=== PATIENT | male | born 1955 | race Caucasian/White ===

== ENCOUNTER → 2018-02-21 | Outpatient (CLI) | payer OTHER ==
[~2018-02-21] VITALS: Ht 185.4 cm; Wt 115.7 kg
[~2018-02-21] MED LIST: ASPIR 8181 MG PO; CENTRUM SILVER1 EAC2 PO; HYDROCHLOROTHIA25 M1 PO; LIPITOR 20 MG T20 M1 PO; VERAPAMIL E.R240 M1 PO
--- NOTE | ~2018-02-21 | PATH ---
[facility] [place] [address] PATHOLOGY RPT PROCEDURE Name: VICKIELYN E Room #: REG NINA Shook#: [id number] Admission: 02/21/18 Date of : 59 Discharge: Report #: [id number] Path Case #: [id number] [facility] Accession Number: [id number] . 01 Material submitted: . PART A: ASCENDING COLON POLYP X 2 PART B: SIGMOID COLON POLYP . 01 Clinical history: . History of polyps . 02 Diagnosis: A. Colonic mucosa, "ascending colon polyp x2": - Fragments of tubular adenomas. - There is no evidence of high grade dysplasia or malignancy. . B. Colonic mucosa, "sigmoid colon polyp", biopsy: - Hyperplastic polyp. - There is no evidence of adenomatous change, high grade dysplasia or malignancy. . (BRITTANI:billy;02/24/2018) AGA/02/24/2018 . 02 Electronically signed: . Mariusz Johnson MD, Pathologist NPI- [id number] . 01 Gross description: . A. The specimen is received in formalin, labeled "Lyn Johnston, ascending colon polyp (x2 per requisition)" and consists of multiple fragments of soft hudson tissue measuring 0.9 x 0.6 x 0.2 cm in aggregate which are entirely submitted in A1. . B. The specimen is received in formalin, labeled "Lyn Johnston, sigmoid colon polyp" and consists of a fragment of soft hudson tissue measuring 0.3 x 0.3 x 0.1 cm which is entirely submitted in B1. (SDY; 02/21/2018) SYU/SYU . 02 Pathologist provided ICD-10: D12.2, K63.5 . 02 CPT . 352158, 746227 Specimen Comment: A courtesy copy of this report has been sent to Specimen Comment: [phone], [place] [address] PATHOLOGY RPT PROCEDURE Name: LYN JOHNSTON Room #: REG [facility]#: [id number] Admission: 02/21/18 Date of : 59 Discharge: Report #: [id number] Path Case #: [id number] Specimen Comment: Report sent to / DR SANDOVAL Performed at: 01 [facility] [place] [address] [facility] [address], [place], [place] [id number] MD Chris Arriaga MD Phone: [phone] Performed at: [address] [id number] MD Marian Gustafson MD Phone: [phone]
--- NOTE | ~2018-02-21 | P ---
[facility] [place] [address] [address] [place] [address] PROCEDURE REPORT Name: LYN JOHNSTON Room #: REG [facility]#: [id number] Admission: 02/21/18 Attend Phys: Tristin Carlson Discharge: Date of : 59 Report #: [id number] THIS REPORT FOR: //name// CC: Tristin Maria MD DATE OF SERVICE: 02/21/2018 PROCEDURE PERFORMED: Colonoscopy with biopsies. HISTORY OF PRESENT ILLNESS: The patient is a 62-year-old male with a history of colon polyps, here for routine 5-year followup, yesterday presented for colonoscopy, but the prep was poor; therefore, he reprepped for today. No family history of colon cancer. He denies any symptoms. DESCRIPTION OF PROCEDURE: The risks and benefits of the procedure were explained to the patient, those risks including but not limited to bleeding, perforation, the risk of sedation. He understood these risks and gave informed consent. Sedation was given using propofol per Anesthesia. Next, a digital rectal exam was initially performed, which was normal. Next, using a standard Olympus colonoscope, scope was placed in the patient's anus and advanced under direct vision to the cecum. The overall prep was good at this time. The cecum and ileocecal valve were normal in appearance. In the ascending colon, two 4-5 mm sessile polyps are noted, both removed by cold forceps, otherwise normal. The transverse and descending colon were normal. In the sigmoid colon, a 3 mm sessile polyp was noted, also removed with cold forceps. The rectal mucosa was normal. On retroflexion, medium size nonbleeding internal hemorrhoids were noted. The scope was then withdrawn and the procedure terminated. The patient tolerated the procedure well. IMPRESSION: 1. Three small colonic polyps. 2. Internal hemorrhoids. 3. Otherwise, normal colonoscopy. RECOMMENDATIONS: 1. Await biopsy results. 2. If polyps are hyperplastic, repeat in 10 years; if adenomatous polyp, repeat in [address] [address] PROCEDURE REPORT Name: LYN JOHNSTON Room #: REG [facility] [place]#: [id number] Admission: 02/21/18 Attend Phys: Tristin Carlson Discharge: Date of : 59 Report #: [id number] Thank you for allowing me to participate in his care. <ELECTRONICALLY SIGNED> By: Tristin Chew MD 02/24/18 0903 [id number] Tristin Chew MD /nt
== END | disposition home or self-care (01) ==
LOC: GI 08:05
DX: Z12.11 Encounter for screening for malignant neoplasm of colon (principal); Z86.010 Personal history of colon polyps; D12.2 Benign neoplasm of ascending colon; K63.5 Polyp of colon; K64.8 Other hemorrhoids; G47.33 Obstructive sleep apnea (adult) (pediatric); I10 Essential (primary) hypertension; E78.5 Hyperlipidemia, unspecified; Z87.19 Personal history of other diseases of the digestive system; Z98.890 Other specified postprocedural states; Z79.82 Long term (current) use of aspirin; Z79.899 Other long term (current) drug therapy
CPT/HCPCS: 62110; 62900